=== PATIENT | female | born 1950 | race Caucasian/White ===

== ENCOUNTER 2016-05-30 15:37 | Emergency (ER) | payer OTHER, MEDICARE ==
[~2016-05-30] VITALS: Ht 170.2 cm; Wt 59.2 kg
[~2016-05-30 15:37] MED LIST: ASPEC81 PO; ATV5 PO; ESTR0.035 TOP; MULT-506 PO; OMEG10007 PO; SYN50 PO
[2016-05-30 15:39] VITALS: TEMP 38.1; Ht 170.2 cm; Wt 59.2 kg
[2016-05-30] MEDS ORDERED: ONDANSETRON INJ 2 MG/ML 2 ML VIAL IV STA (17:09)
[2016-05-30] MEDS ORDERED: KETOROLAC TROMETHAMINE 30 MG/ML VIAL IV STA (17:09)
[2016-05-30] MEDS ORDERED: SODIUM CHLORIDE 0.9% 1000ML 1,000 ML IV STA ×2 (17:09)
--- NOTE | 2016-05-30 17:12 | EMERGENCY ROOM VISIT NOTE ---
History Report prepared by Roby: Sruthi Olivera Under the Supervision of: Dr. Kit Kenney D.O. First contact with patient: 16:57 Chief Complaint: GI ASSESSMENT Stated Complaint: CRAMPING/PAIN IN COLON, SLIGHT FEVER Nursing Triage Summary: Lower abd cramps that woke her up at 2 am today. Cramps have improved slightly. Fever. Noticed mucus in stool today. History of Present Illness The patient is a 65 year old female who presents to the Emergency Room with complaints of intermittent lower abdominal pain that started around 0200 this morning. She rates her discomfort as a 2/10 in severity. She describes the pain as feeling like cramping and reports her lower abdomen feels "distended". She checked her temperature at home and states it was around 100 degrees. She passed gas and noticed a lot of mucous in her rectal area. She has also experienced the chills and has been drinking a lot water as she has felt dehydrated. She states she was not able to get back to sleep at all after the pain started. The patient reports she did try eating a banana and oatmeal, but she was not able to find any pain relief or have a proper bowel movement. She admits to a history of diverticulitis but states today's pain does not feel similar. Source of History: patient Onset: 0200 this morning Position: abdomen Symptom Intensity: 2/10 Quality: cramping Timing: intermittent Associated Symptoms: + chills, + fevers Review of Systems See HPI for pertinent positives and negatives. A total of ten systems were reviewed and were otherwise negative. Past Medical & Surgical Medical Problems: (1) Bronchitis (2) Pneumonia Family History Cancer FH: HTN (hypertension) Heart disease Social History Smoking Status: Never Smoker Marital Status: single Occupation Status: retired Current/Historical Medications Scheduled Aspirin Enteric Coated (Ecotrin Or Generic *), 81 MG PO DAILY Cefdinir (Omnicef), 300 MG PO Q12H Estradiol (Climara), 1 PATCH TOP WK Levothyroxine Sodium (Synthroid), 75 MCG PO DAILY Lorazepam (Ativan *), 0.5 MG PO PRN Metronidazole (Flagyl), 500 MG PO BID Multivitamin (Multivitamin), 1 TAB PO DAILY Scheduled PRN Naproxen (Aleve), 220 MG PO DAILY PRN for Pain Allergies Coded Allergies: Ciprofloxacin (Verified Allergy, Unknown, ., 05/30/16) Physical Exam Vital Signs Date Time Temp Pulse Resp B/P Pulse Ox O2 Delivery O2 Flow Rate FiO2 05/30/16 21:41 70 20 124/78 99 05/30/16 20:46 81 20 128/72 99 Room Air 05/30/16 19:29 91 05/30/16 18:39 93 20 148/90 97 Room Air 05/30/16 15:39 38.1 113 17 145/82 94 Room Air Physical Exam GENERAL: Awake, alert, well-appearing, in no acute distress HENT: Normocephalic, atraumatic. Oropharynx unremarkable. EYES: Normal conjunctiva. Sclera non-icteric. NECK: Supple. No nuchal rigidity. FROM. No JVD. RESPIRATORY: Clear to auscultation. CARDIAC: Regular rate, normal rhythm. Extremities warm and well perfused. Pulses equal. ABDOMEN: Soft, non-distended. Suprapubic tenderness and tympany to palpation. No rebound or guarding. No masses. RECTAL: Deferred. MUSCULOSKELETAL: Chest examination reveals no tenderness. The back is symmetrical on inspection without obvious abnormality. There is no CVA tenderness to palpation. No joint edema. LOWER EXTREMITIES: Calves are equal size bilaterally and non-tender. No edema. No discoloration. NEURO: Normal sensorium. No sensory or motor deficits noted. SKIN: No rash or jaundice noted. Medical Decision & Procedures ER Provider Diagnostic Interpretation: This CT scan was reviewed and interpreted by the radiologist and reviewed by myself. ABDOMEN AND PELVIS CT WITH IV CONTRAST IMPRESSION: 1. Moderate thickening of the mid sigmoid colon with an inflamed diverticulum and pericolonic fat stranding. This is consistent with acute sigmoid diverticulitis. No perforation or abscess at this time. Follow-up nonemergent colonoscopy is recommended to exclude the less likely possibility of underlying colonic mass. 2. Mild infiltration within the mesentery and trace pelvic fluid. This could represent a mild peritonitis due to the acute diverticulitis. 3. Mild mesenteric and left para-aortic lymphadenopathy. This is greater than expected for the diverticulitis/peritonitis. Although possibly reactive, this raises the possibility of an underlying lymphoma. Follow-up abdomen and pelvis CT is recommended once the patient's diverticulitis has resolved to ensure resolution of this finding. Electronically signed by: Humza Calderon M.D. 05/30/2016 8:24 PM Laboratory Results 05/30/16 17:55 Red Blood Count 4.70, Mean Corpuscular Volume 87.9, Mean Corpuscular Hemoglobin 30.0, Mean Corpuscular Hemoglobin Concent 34.1, Mean Platelet Volume 12.0, Neutrophils (%) (Auto) 84.9, Lymphocytes (%) (Auto) 7.5, Monocytes (%) (Auto) 7.0, Eosinophils (%) (Auto) 0.2, Basophils (%) (Auto) 0.2, Neutrophils # (Auto) 11.24, Lymphocytes # (Auto) 0.99, Monocytes # (Auto) 0.93, Eosinophils # (Auto) 0.03, Basophils # (Auto) 0.02 05/30/16 17:55 Test 05/30/16 17:55 05/30/16 19:00 White Blood Count 13.23 K/uL (4.8-10.8) Red Blood Count 4.70 M/uL (4.2-5.4) Hemoglobin 14.1 g/dL (12.0-16.0) Hematocrit 41.3 % (37-47) Mean Corpuscular Volume 87.9 fL (80-100) Mean Corpuscular Hemoglobin 30.0 pg (25-34) Mean Corpuscular Hemoglobin Concent 34.1 g/dl (32-36) Platelet Count 196 K/uL (130-400) Mean Platelet Volume 12.0 fL (7.4-10.4) Neutrophils (%) (Auto) 84.9 % Lymphocytes (%) (Auto) 7.5 % Monocytes (%) (Auto) 7.0 % Eosinophils (%) (Auto) 0.2 % Basophils (%) (Auto) 0.2 % Neutrophils # (Auto) 11.24 K/uL (1.4-6.5) Lymphocytes # (Auto) 0.99 K/uL (1.2-3.4) Monocytes # (Auto) 0.93 K/uL (0.11-0.59) Eosinophils # (Auto) 0.03 K/uL (0-0.5) Basophils # (Auto) 0.02 K/uL (0-0.2) RDW Standard Deviation 39.4 fL (36.4-46.3) RDW Coefficient of Variation 12.3 % (11.5-14.5) Immature Granulocyte % (Auto) 0.2 % Immature Granulocyte # (Auto) 0.02 K/uL (0.00-0.02) Anion Gap 10.0 mmol/L (3-11) Est Creatinine Clear Calc Drug Dose 59.6 ml/min Estimated GFR () 79.9 Estimated GFR (Non- 68.9 BUN/Creatinine Ratio 19.5 (10-20) Calcium Level 9.0 mg/dl (8.5-10.1) Total Bilirubin 1.0 mg/dl (0.2-1) Direct Bilirubin 0.2 mg/dl (0-0.2) Aspartate Amino Transf (AST/SGOT) 13 U/L (15-37) Alanine Aminotransferase (ALT/SGPT) 20 U/L (12-78) Alkaline Phosphatase 56 U/L (45-117) Total Protein 7.2 gm/dl (6.4-8.2) Albumin 3.8 gm/dl (3.4-5.0) Lipase 116 U/L (73-393) Urine Color YELLOW Urine Appearance CLEAR (CLEAR) Urine pH 5.0 (4.5-7.5) Urine Specific [place] 1.007 (1.000-1.030) Urine Protein NEG (NEG) Urine Glucose (UA) NEG (NEG) Urine Ketones 1+ (NEG) Urine Occult Blood 3+ (NEG) Urine Nitrite NEG (NEG) Urine Bilirubin NEG (NEG) Urine Urobilinogen NEG (NEG) Urine Leukocyte Esterase NEG (NEG) Urine WBC (Auto) 0 /hpf (0-5) Urine RBC (Auto) 5-10 /hpf (0-4) Urine Hyaline Casts (Auto) 0 /lpf (0-5) Urine Epithelial Cells (Auto) 0-5 /lpf (0-5) Urine Bacteria (Auto) NEG (NEG) Laboratory results reviewed by me Medications Administered Medications (Trade) Dose Ordered Sig/Kristian Route Start Time Stop Time Status Last Admin Dose Admin Sodium Chloride 1,000 ml @ 125 mls/hr Q8H STAT IV 05/30/16 17:09 05/30/16 22:51 DC 05/30/16 18:35 125 MLS/HR Sodium Chloride (Nss 1000ml) 1,000 ml @ 999 mls/hr Q1H1M STAT IV 05/30/16 17:09 1/3/17 18:09 DC 05/30/16 18:34 999 MLS/HR Ondansetron HCl (Zofran Inj) 4 mg NOW STAT IV 05/30/16 17:09 05/30/16 17:12 DC 05/30/16 18:34 4 MG Ketorolac Tromethamine (Toradol Inj) 30 mg NOW STAT IV 05/30/16 17:09 05/30/16 17:12 DC 05/30/16 18:34 30 MG Metronidazole (Flagyl Tab) 500 mg NOW STAT PO 05/30/16 20:51 05/30/16 20:54 DC 05/30/16 21:27 500 MG Metronidazole (Flagyl Tab) 500 mg BID STAT PO 05/30/16 20:51 05/30/16 20:54 DC 05/30/16 21:27 500 MG Acetaminophen/ Hydrocodone Bitart (Senoia 5/325mg Home Pack) 1 homepack UD ONCE PO 05/30/16 21:00 05/30/16 21:01 DC 05/30/16 21:26 1 HOMEPACK Cefdinir (Omnicef Susp) 300 mg TODAY@2130 PO 05/30/16 21:30 05/30/16 22:51 DC 05/30/16 21:27 300 MG Cefdinir (Omnicef Susp) 300 mg Q12H PO 05/30/16 22:00 05/30/16 22:51 DC 05/30/16 21:28 300 MG ED Course 1700: The patient was evaluated in room B6. A complete history and physical exam was performed. 1708: Toradol 30 mg IV, Zofran 4 mg IV, NSS 1000 ml @ 999 mls/hr IV, NSS 1000 ml @ 125 mls/hr IV. 2039: I reevaluated the patient. She is feeling much better. I discussed her results and gave her the option to stay here in the hospital, but she declined, as she is hoping to fly home to [place] tomorrow. I told her if she is not experiencing vomiting or diarrhea, she should be safe to fly. I recommended she follow up with her primary care provider in [place] and she states she will. 2050: Flagyl 500 mg PO, Flagyl 500 mg 1 home pack PO. 2100: [place] 5/325 mg 1 home pack PO, Cefdinir 300 mg PO, Cefdinir 300 mg 1 home pack PO. Medical Decision Prior records/ancillary studies reviewed. Triage Nursing notes reviewed and agree them. The patient's history was concerning for abdominal pain. Differential diagnosis: Etiologies such as appendicitis, diverticulitis, PUD, biliary pathology, UTI, pancreatitis, obstruction, mesenteric ischemia, aortic pathology, infections, inflammatory bowel disease, renal colic, as well as others were entertained. MDM: Roma is a 65-year-old female complaining of suprapubic abdominal pain since 2 AM this morning. She states that the pain has been getting worse throughout the day. She is unable to get comfortable at home. Denies any nausea vomiting. Eyes any urinary complaints. Does have a remote history of diverticulitis. States that this doesn't really feel like diverticulitis type pain. She did have a episode of flatus with mucus. Denies ever having any kidney stones. CT scan was significant for acute diverticulitis without abscess or perforation. I discussed with the patient about antibiotic choices as well as with the clinical pharmacist we decided to go with Juju. Patient states that she is flying back to [place] with her which is her home in the morning. I discussed with her about that she states that she feels comfortable flying back home with antibiotic she has not had any vomiting or diarrhea. I feel it is safe to fly back home we'll make sure that she has some medications to take now and in the morning. She remained happy and comfortable with her emergency department care and will follow up with her primary care provider in 2 days. She will return to the emergency department as needed for any severe symptoms. All questions were answered to satisfaction. The patient's presentation and history is c/w the impression provided. A partial list of DDx that has been considered is listed above. By the evaluation outlined above other emergent etiologies such as those listed in the differential, as well as others, were deemed relatively unlikely. The patient has been informed about today's findings. All questions were answered to satisfaction and understanding. They are pleased with the care provided. Patient education and return instructions were discussed as per my usual and the patient was discharged in stable condition as agreed upon by the patient. The patient was referred for close follow-up and informed that they will need to call to schedule appointment during the next business hours. The chart was completed utilizing a scribe and [employer] Speech voice recognition software. Utilizing these services results in errors at time as they are imperfect. Grammatical errors, random word insertions, pronoun errors, and incomplete sentences are an occasional consequence of this system due to software limitations, ambient noise, and hardware issues. Any formal questions or concerns about the content, text, or information contained within the body of this dictation should be directly addressed to the physician for clarification. Impression Primary Impression: Acute diverticulitis Scribe Attestation The scribe's documentation has been prepared under my direction and personally reviewed by me in its entirety. I confirm that the note above accurately reflects all work, treatment, procedures, and medical decision making performed by me. Departure Information Dispostion Home / Self-Care Prescriptions Metronidazole (Flagyl) 500 Mg Tab 500 MG PO BID, #20 TAB Prov: Kit Kenney JR., DO 05/30/16 Cefdinir (Omnicef) 300 Mg Cap 300 MG PO Q12H for 10 Days, #20 CAP Prov: Kit Kenney JR., DO 05/30/16 Referrals No Doctor, Assigned (PCP) Patient Instructions A Signature Page, ED Diverticulitis, [facility] Additional Instructions 1. Return to emergency department in 12 hours if abdominal pain persists. 2. Take all medications to completion. 3. Do not fly if you develop repeated episodes of vomiting or diarrhea. 4. Follow up with your doctor in 2 days. 5. Drink plenty of fluids.
[2016-05-30] MEDS ORDERED: OPTIRAY 320 IV PRN (17:30)
[2016-05-30] MEDS ORDERED: SYN75 PO (17:44)
[2016-05-30] MEDS ORDERED: NAPR1TAB9 PO (17:44)
[2016-05-30 18:38] LABS: BASO % 0.2 %; BASO ABS # 0.02 K/uL (0-0.2); COMPLETE YES; EOS % 0.2 %; HEMATOCRIT 41.3 % (37-47); IG% 0.2 %; LYMPH % 7.5 %; LYMPH ABS # 0.99 K/uL (1.2-3.4); MEAN CELL VOLUME 87.9 fL (80-100); MEAN CORPUSCULAR HGB CONC 34.1 g/dl (32-36); NEUT % 84.9 %; PLATELET COUNT 196 K/uL (130-400); WHITE BLOOD COUNT 13.23 K/uL (4.8-10.8)
[2016-05-30 19:02] LABS: BUN/CREATININE RATIO 19.5 (10-20); CREATININE 0.88 mg/dl (0.60-1.20); POTASSIUM 3.9 mmol/L (3.5-5.1)
[2016-05-30 19:46] LABS: URINE APPEARANCE CLEAR (CLEAR); URINE BILIRUBIN NEG (NEG); URINE COLOR YELLOW; URINE EPITHELIAL CELL AUTO 0-5 /lpf (0-5); URINE NITRITE NEG (NEG); URINE SPECIFIC GRAVITY 1.007 (1.000-1.030); UROBILINOGEN NEG (NEG); ZZUR CULT IF INDIC CLEAN CATCH NO
[2016-05-30 19:57] LABS: MANUAL MICROSCOPIC REQUIRED? NO; REVIEW REQ? NO
--- NOTE | 2016-05-30 20:26 | DIAGNOSTIC IMAGING REPORT ---
ABDOMEN AND PELVIS CT WITH IV CONTRAST CT DOSE: 265.38 mGy.cm HISTORY: Generalized abdominal pain. TECHNIQUE: Multiaxial CT images of the abdomen and pelvis were performed following the use of intravenous contrast. COMPARISON STUDY: None. FINDINGS: Mild dependent changes seen at the lung bases. No pneumoperitoneum. No pneumatosis. No suspicious lytic or blastic osseous lesions. Multiple hypodense lesions seen scattered throughout the liver. These likely represent cysts. The dominant lesion within the left hepatic lobe measures 4.3 cm. The spleen, adrenal glands, pancreas, gallbladder, and right kidney are unremarkable. No hydronephrosis. A 7 mm hypodense focus within the lower pole the left kidney. This is too small to characterize but could represent an area of scarring. The bladder is unremarkable. The uterus is surgically absent. There is mild left periaortic lymphadenopathy. Dominant lymph node measures 2.2 x 1.4 cm. There is also mild mesenteric lymphadenopathy. Dominant mesenteric lymph node measures 1.5 x 1.1 cm. Trace pelvic fluid. The bladder is unremarkable. There is mild infiltration seen throughout the mesentery. There is moderate thickening of the mid sigmoid colon. There appears to be an inflamed diverticulum within the mid sigmoid colon on image 310. There is associated pericolonic fat stranding. Therefore, this is consistent with acute sigmoid diverticulitis. No perforation or abscess identified at this time. No evidence for bowel obstruction. IMPRESSION: 1. Moderate thickening of the mid sigmoid colon with an inflamed diverticulum and pericolonic fat stranding. This is consistent with acute sigmoid diverticulitis. No perforation or abscess at this time. Follow-up nonemergent colonoscopy is recommended to exclude the less likely possibility of underlying colonic mass. 2. Mild infiltration within the mesentery and trace pelvic fluid. This could represent a mild peritonitis due to the acute diverticulitis. 3. Mild mesenteric and left para-aortic lymphadenopathy. This is greater than expected for the diverticulitis/peritonitis. Although possibly reactive, this raises the possibility of an underlying lymphoma. Follow-up abdomen and pelvis CT is recommended once the patient's diverticulitis has resolved to ensure resolution of this finding. Electronically signed by: Humza Calderon M.D. 05/30/2016 8:24 PM
[2016-05-30] MEDS ORDERED: METRONIDAZOLE 250 MG TAB PO STA ×2 (20:51)
[2016-05-30] MEDS ORDERED: CEFD1CAP14 PO (20:57)
[2016-05-30] MEDS ORDERED: METR-163 PO (20:57)
[2016-05-30] MEDS ORDERED: CEFDINIR 125 MG/5 ML 60 ML BTL PO ONE (21:00)
[2016-05-30] MEDS ORDERED: CEFDINIR 250 MG/5 ML 60 ML PO SCH (21:00)
[2016-05-30] MEDS ORDERED: NORCO 5/325MG HOME PACK PO ONE (21:00)
[2016-05-30] MEDS ORDERED: EMPTY 8 DRAM VIAL ONE (21:15)
[2016-05-30] MEDS ORDERED: CEFDINIR 125 MG/5 ML 60 ML BTL PO SCH ×2 (21:30→22:00)
[2016-05-30 21:41] VITALS: BP 124/78; PULSE 70; O2SAT 99
== END 2016-05-30 21:43 | disposition home or self-care (01) ==
LOC: C.EDB 15:39
DX: K57.92 Diverticulitis of intestine, part unspecified, without perforation or abscess without bleeding (principal); R50.9 Fever, unspecified; Z79.82 Long term (current) use of aspirin; Z79.899 Other long term (current) drug therapy; Z88.1 Allergy status to other antibiotic agents